=== PATIENT | male | born 1995 | race Caucasian/White ===

== ENCOUNTER 2018-04-27 02:30 | Emergency (ER) | payer OTHER ==
[2018-04-27 02:35] VITALS: BP 121/71
[2018-04-27] MEDS ORDERED: ZOFRAN IV ONE (03:25)
[2018-04-27] MEDS ORDERED: NACL 0.9% 1000 ML 1,000 ML IV ONE ×2 (03:25→04:49)
[2018-04-27] MEDS ORDERED: TORADOL IV ONE (03:25)
--- NOTE | 2018-04-27 03:26 | XRay Report ---
FINAL REPORT EXAM: XR ABDOMEN 2V HISTORY: abd pain with n V D TECHNIQUE: An upright view of the abdomen pelvis was obtained. FINDINGS: There are few small air-fluid levels involving bowel loops. There is a moderate amount retained fecal content. Free air is not seen. There is no evidence of mass effect or suspicious calcifications. The skeletal structures are well-maintained. The lung bases are clear. IMPRESSION: Moderate amount retained fecal content. Unremarkable bowel gas pattern otherwise.
[2018-04-27 03:34] LABS: Basophils % (Auto) 0.2 % (0.0-1.8); Eosinophils # (Auto) 0.1 K/mm3 (0.0-0.4); Eosinophils % (Auto) 0.6 % (0.0-4.3); Hematocrit 49.7 % (35.5-45.6); Hemoglobin 17.1 gm/dl (11.8-15.2); Lymphocytes # (Auto) 1.5 K/mm3 (1.2-5.4); Lymphocytes % (Auto) 11.3 % (13.4-35.0); Mean Corpuscular HGB Conc 34 % (32-34); Mean Corpuscular Volume 92 fl (84-94); Monocytes # (Auto) 0.8 K/mm3 (0.0-0.8); Monocytes % (Auto) 5.8 % (0.0-7.3); Platelet Count 201 K/mm3 (140-440); Red Blood Count 5.43 M/mm3 (3.65-5.03); Red Cell Distribution Width 13.6 % (13.2-15.2)
[2018-04-27 03:55] LABS: Bilirubin,Urine NEG (Negative); Blood,Urine NEG (Negative); Color,Urine Yellow (Yellow); Mucus,Urine 2+ /HPF; Protein,Urine <15 mg/dL mg/dL (Negative); Urobilinogen,Urine < 2.0 mg/dL (<2.0)
--- NOTE | 2018-04-27 04:08 | Emergency Department Report ---
ED Abdominal Pain HPI - General Chief Complaint: Abdominal Pain Stated Complaint: STOMACH PAIN NAUSEA VOMITING Time Seen by Provider: 04/27/18 03:07 Source: patient, family Mode of arrival: Ambulatory Limitations: No Limitations - History of Present Illness Initial Comments: Patient is a 22-year-old male speaking mother is at bedside for nancy king as gabino molina referred MD Complaint: abdominal pain Onset/Timin -: year(s) (1) Location: periumbilical, LLQ, RLQ Radiation: LLQ, RLQ, suprapubic Migration to: no migration Severity: moderate Severity scale (0 -10): 8 Quality: aching Consistency: constant Worsens With: eating Associated Symptoms: nausea, vomiting, diarrhea, fever, chills - Related Data Previous Rx's Medication Instructions Recorded Last Taken Type Bisacodyl [Dulcolax suppos] 10 mg MS ONCE PRN #6 supp.rect 04/27/18 Unknown Rx Famotidine [Pepcid] 20 mg PO BID #60 tablet 04/27/18 Unknown Rx Polyethylene Glycol 3350 [Miralax 17 gm PO BID PRN 7 Days #14 packet 04/27/18 Unknown Rx 3350] Allergies Allergy/AdvReac Type Severity Reaction Status Date / Time No Known Allergies Allergy Verified 04/27/18 02:40 ED Review of Systems ROS: Stated complaint: STOMACH PAIN NAUSEA VOMITING Other details as noted in HPI Constitutional: denies: chills, fever Eyes: denies: eye pain, eye discharge, vision change ENT: dental pain, hearing loss, congestion. denies: ear pain, throat pain Respiratory: denies: cough, shortness of breath, wheezing Cardiovascular: denies: chest pain, palpitations Endocrine: no symptoms reported Gastrointestinal: abdominal pain, nausea. denies: diarrhea, constipation, hematemesis, melena, hematochezia Genitourinary: denies: urgency, dysuria, frequency Musculoskeletal: back pain. denies: joint swelling, arthralgia Skin: denies: rash, lesions Neurological: denies: headache, weakness, numbness, paresthesias, confusion, abnormal gait, vertigo Psychiatric: denies: anxiety, depression Hematological/Lymphatic: denies: easy bleeding, easy bruising ED Past Medical Hx - Past Medical History Previous Medical History?: No - Surgical History Past Surgical History?: No - Social History Smoking Status: Never Smoker Substance Use Type: None - Medications Home Medications: Home Medications Medication Instructions Recorded Confirmed Last Taken Type Bisacodyl [Dulcolax suppos] 10 mg MS ONCE PRN #6 supp.rect 04/27/18 Unknown Rx Famotidine [Pepcid] 20 mg PO BID #60 tablet 04/27/18 Unknown Rx Polyethylene Glycol 3350 [Miralax 17 gm PO BID PRN 7 Days #14 packet 04/27/18 Unknown Rx 3350] ED Physical Exam - General Limitations: No Limitations General appearance: alert, in no apparent distress - Head Head exam: Present: atraumatic, normocephalic, normal inspection - Expanded Head Exam Expanded Head exam: Absent: laceration, abrasion, contusion - Eye Eye exam: Present: normal appearance, PERRL, EOMI Pupils: Present: normal accommodation - ENT ENT exam: Present: normal orophraynx, mucous membranes moist, TM's normal bilaterally - Neck Neck exam: Present: normal inspection, full ROM. Absent: tenderness, meningismus, lymphadenopathy, thyromegaly - Respiratory Respiratory exam: Present: normal lung sounds bilaterally. Absent: wheezes, rhonchi, chest wall tenderness - Cardiovascular Cardiovascular Exam: Present: regular rate, normal rhythm, normal heart sounds. Absent: systolic murmur, diastolic murmur, rubs, gallop - GI/Abdominal GI/Abdominal exam: Present: soft, tenderness (mild periumbilical tenderness to deep palpation ), normal bowel sounds. Absent: distended, guarding, rebound, mass, bruit, pulsatile mass, hernia - Rectal Rectal exam: Present: deferred, normal prostate - exam: Present: normal inspection - Extremities Exam Extremities exam: Present: normal inspection, full ROM, normal capillary refill. Absent: tenderness, pedal edema, joint swelling, calf tenderness - Back Exam Back exam: Present: normal inspection, full ROM, muscle spasm. Absent: tenderness, CVA tenderness (R), CVA tenderness (L), paraspinal tenderness, vertebral tenderness, rash noted - Neurological Exam Neurological exam: Present: alert, oriented X3, CN II-XII intact, normal gait - Psychiatric Psychiatric exam: Present: normal affect, normal mood - Skin Skin exam: Present: warm, dry, intact, normal color. Absent: rash ED Course Vital Signs 04/27/18 04/27/18 04/27/18 02:34 04:00 04:30 Temperature 97.8 F Pulse Rate 88 Respiratory 18 20 20 Rate Blood Pressure 121/71 O2 Sat by Pulse 99 Oximetry ED Medical Decision Making - Lab Data Result diagrams: 04/27/18 03:01 04/27/18 03:46 Labs 04/27/18 04/27/18 04/27/18 03:01 03:01 03:25 WBC 13.3 H RBC 5.43 H Hgb 17.1 H Hct 49.7 H MCV 92 MCH 32 MCHC 34 RDW 13.6 Plt Count 201 Lymph % (Auto) 11.3 L [place] % (Auto) 5.8 Eos % (Auto) 0.6 Baso % (Auto) 0.2 Lymph # 1.5 [place] # 0.8 Eos # 0.1 Baso # 0.0 Seg Neutrophils % 82.1 H Seg Neutrophils # 10.9 H Sodium 152 H Potassium 4.8 Chloride 107.2 H Carbon Dioxide 25 Anion Gap 25 BUN 16 Creatinine 1.0 Estimated GFR > 60 BUN/Creatinine Ratio 16 Glucose 116 H Calcium 10.3 H Total Bilirubin AST ALT Alkaline Phosphatase Total Protein Albumin Albumin/Globulin Ratio Lipase 12 L Urine Color Yellow Urine Turbidity Clear Urine pH 5.0 Ur Specific [place] 1.026 Urine Protein <15 mg/dl Urine Glucose (UA) Neg Urine Ketones Neg Urine Blood Neg Urine Nitrite Neg Urine Bilirubin Neg Urine Urobilinogen < 2.0 Ur Leukocyte Esterase Neg Urine WBC (Auto) 2.0 Urine RBC (Auto) 1.0 U Epithel Cells (Auto) < 1.0 Urine Mucus 2+ 04/27/18 03:46 WBC RBC Hgb Hct MCV MCH MCHC RDW Plt Count Lymph % (Auto) [place] % (Auto) Eos % (Auto) Baso % (Auto) Lymph # [place] # Eos # Baso # Seg Neutrophils % Seg Neutrophils # Sodium 146 H Potassium 4.2 Chloride 102.9 Carbon Dioxide 25 Anion Gap 22 BUN 15 Creatinine 0.8 Estimated GFR > 60 BUN/Creatinine Ratio 19 Glucose 127 H Calcium 10.1 Total Bilirubin 0.70 AST 16 ALT 11 Alkaline Phosphatase 56 Total Protein 8.2 Albumin 5.2 H Albumin/Globulin Ratio 1.7 Lipase Urine Color Urine Turbidity Urine pH Ur Specific [place] Urine Protein Urine Glucose (UA) Urine Ketones Urine Blood Urine Nitrite Urine Bilirubin Urine Urobilinogen Ur Leukocyte Esterase Urine WBC (Auto) Urine RBC (Auto) U Epithel Cells (Auto) Urine Mucus - Radiology Data Radiology results: report reviewed, image reviewed Findings [facility] [address] [place] [address] XRay Report Signed Patient: IDANIA CROCKETT MR#: [id number] : 11/23/1966 Acct:[id number] Age/Sex: 51 / M ADM Date: 04/26/18 Loc: ED Attending Dr: Ordering Physician: CHRISTINE NICHOLSON NP Date of Service: 04/27/18 Procedure(s): XR chest routine 2V Accession Number(s): [id number] cc: CHRISTINE NICHOLSON NP Fluoro Time In Minutes: FINAL REPORT EXAM: XR CHEST ROUTINE 2V HISTORY: cough fever TECHNIQUE: PA and lateral views of the chest were obtained and compared to the study of 07/26/2017. FINDINGS: The heart size and mediastinum appear normal. The lungs are clear. Pleural fluid is not seen. The skeletal structures appear well maintained. IMPRESSION: No acute process in the chest. Transcribed By: RB Dictated By: ZACHARY TORRES MD Electronically Authenticated By: ZACHARY TORRES MD Signed Date/Time: 04/27/18 0042 - Medical Decision Making KUB suggests moderate constipation CT abdomen and pelvis multiple small loops of bowel reexamination is normal saline 2 L Pain is resolved bowel sounds are normal patient is having bowel movements without difficulty there is no dysuria no symptoms of renal stones no fever no nausea vomiting patient tolerating by mouth intake at this time plan patient will follow with PCP in 2-3 days . Therefore [facility] also refer her to gastroenterology for management of recurrent abdominal pain past 5 years patient and mother verbalized agreement and understanding with discharge plan patient will be DC'd home in stable condition at this time Critical care attestation.: If time is entered above; I have spent that time in minutes in the direct care of this critically ill patient, excluding procedure time. ED Disposition Clinical Impression: Chronic abdominal pain, Dehydration Constipation Qualifiers: Constipation type: unspecified constipation type Qualified Code(s): K59.00 - Constipation, unspecified Abdominal pain Qualifiers: Abdominal location: generalized Qualified Code(s): R10.84 - Generalized abdominal pain Disposition: DC- TO HOME OR SELFCARE Is pt being admited?: No Does the pt Need Aspirin: No Condition: Stable Instructions: Dehydration (ED), Constipation (ED), High Fiber Diet (ED) Prescriptions: Bisacodyl [Dulcolax suppos] 10 mg MS ONCE PRN #6 supp.rect PRN Reason: constipation Famotidine [Pepcid] 20 mg PO BID #60 tablet Polyethylene Glycol 3350 [Miralax 3350] 17 gm PO BID PRN 7 Days #14 packet PRN Reason: constipation Referrals: [facility] [Outside] - 3-5 Days JOHNATHAN GIBSON MD [Staff Physician] - 3-5 Days Forms: Work/School Release Form(ED) Time of Disposition: 06:49
[2018-04-27 04:39] LABS: BUN/Creatinine Ratio 16; Blood Urea Nitrogen 16 mg/dL (9-20); Calcium 10.3 mg/dL (8.4-10.2); Hemolysis Index 19
[2018-04-27 04:44] LABS: Alanine Aminotransferase 11 units/L (7-56); Albumin 5.2 g/dL (3.9-5); BUN/Creatinine Ratio 19; Blood Urea Nitrogen 15 mg/dL (9-20); Calcium 10.1 mg/dL (8.4-10.2); Hemolysis Index 34
--- NOTE | 2018-04-27 06:17 | Cat Scan Report ---
FINAL REPORT EXAM: CT ABDOMEN PELVIS W CON HISTORY: abd pain TECHNIQUE: Routine axial imaging was obtained of the abdomen and pelvis following the intravenous in jection of 100 cc of Omnipaque 300. Delayed imaging was obtained of the kidneys ureters and bladder. Sagittal and coronal reconstructions were reviewed. FINDINGS: The lung bases are negative for infiltrates or effusions. The liver is normal in size and reveals 5.6 mm low-density focus in the right hepatic lobe. Whether t his represents a small cyst or hemangioma is uncertain. It is too small to characterize. The gallblad emelia, biliary tree, pancreas, spleen, and adrenal glands appear normal. The kidneys enhance normally. There is no evidence of stones or hydronephrosis. The abdominal aorta is normal in caliber. The nita l vein enhances normally. The bowel loops reveal multiple mildly distended fluid-filled loops of ileum in the pelvis. There is several small air-fluid levels. The jejunum is normal in caliber. The colon is normal in caliber also . There is no evidence of free fluid or adenopathy. In the pelvis the prostate gland and bladder appe ar normal. The skeletal structures are unremarkable. IMPRESSION: Multiple mildly distended fluid-filled loops of ileum in the pelvis with a few air-fluid levels. Diag nostic consideration include an early partial mechanical small bowel obstruction versus nonspecific e nteritis/ileus. 5.6 mm low-density focus in the right hepatic lobe. Whether this represents a small cyst or hemangiom a is uncertain. It is too small to characterize.
== END 2018-04-27 07:02 | disposition home or self-care (01) ==
LOC: ED 02:30
DX: E86.0 Dehydration (principal); K59.00 Constipation, unspecified
CPT/HCPCS: 36415; 74019; 74177; 80048; 80053; 81001; 83690; 85025; 96361; 96374; 96375; 99284; J1885; J2405; J7030; Q9967